=== PATIENT | male | born 1945 | race Caucasian/White ===

== ENCOUNTER 2021-07-22 09:17 | Emergency (ER) | payer MEDICARE ==
[2021-07-22 09:26] VITALS: RESP 18
[2021-07-22 09:28] VITALS: TEMP 98.1
[2021-07-22] MEDS ORDERED: SODIUM CHLORIDE 0.9% 1,000 ML IV STA (09:50)
--- NOTE | 2021-07-22 09:54 | ED ---
General Adult HPI - General Chief complaint: Dizziness Stated complaint: near syncope, dizziness Time Seen by Provider: 07/22/21 09:20 Source: patient, EMS, RN notes reviewed Mode of arrival: EMS Limitations: no limitations - History of Present Illness Initial comments: Patient is a pleasant 76-year-old male presenting to the emergency department with near-syncopal episode. Patient felt fine this morning. Patient was at [facility] and felt slightly lightheaded. Patient got up and symptoms got worse. Patient needed to sit back down. Patient never passed out. No chest pain. No palpitations. No dyspnea. Symptoms lasted around 20 minutes and now Resolved. EMS reports patient has positive orthostatics. Patient denies any confusion or weakness. Patient recently had his pacer/deferred later checked and was told it was okay. Patient also recently saw his primary care physician and was told everything looked good. - Related Data Home Medications Medication Instructions Recorded Confirmed Aspirin 81 mg PO HS 07/22/21 07/22/21 Atorvastatin [Lipitor] 20 mg PO HS 07/22/21 07/22/21 Carvedilol [Coreg] 12.5 mg PO BID 07/22/21 07/22/21 Enalapril Maleate 2.5 mg PO BID 07/22/21 07/22/21 Multivitamins, Thera [Multivitamin 1 tab PO DAILY 07/22/21 07/22/21 (formulary)] Allergies Allergy/AdvReac Type Severity Reaction Status Date / Time No Known Allergies Allergy Verified 07/22/21 11:17 Review of Systems ROS Statement: Those systems with pertinent positive or pertinent negative responses have been documented in the HPI. ROS Other: All systems not noted in ROS Statement are negative. Constitutional: Denies: fever Eyes: Denies: eye pain ENT: Denies: ear pain Respiratory: Denies: cough Cardiovascular: Denies: chest pain, palpitations Endocrine: Denies: fatigue Gastrointestinal: Denies: abdominal pain, vomiting Genitourinary: Denies: urgency Musculoskeletal: Denies: back pain Skin: Denies: rash Neurological: Denies: headache, weakness, confusion Past Medical History Additional Past Medical History / Comment(s): paracarditis. History of Any Multi-Drug Resistant Organisms: None Reported Past Surgical History: Pacemaker Additional Past Surgical History / Comment(s): medtronic pacemaker. Past Psychological History: No Psychological Hx Reported Smoking Status: Never smoker Past Alcohol Use History: Occasional Past Drug Use History: None Reported General Exam Limitations: no limitations General appearance: alert, in no apparent distress Head exam: Present: normocephalic Eye exam: Present: normal appearance, PERRL, EOMI. Absent: nystagmus ENT exam: Present: normal oropharynx Neck exam: Present: normal inspection Respiratory exam: Present: normal lung sounds bilaterally Cardiovascular Exam: Present: regular rate, normal rhythm Expanded Peripheral pulses: 2+: Radial (R), Radial (L), Posterior Tibialis (R), Posterior Tibialis (L) GI/Abdominal exam: Present: soft. Absent: tenderness Extremities exam: Present: normal inspection. Absent: pedal edema, calf tenderness Neurological exam: Present: alert, oriented X3, CN II-XII intact. Absent: motor sensory deficit Expanded Neurological exam: Present: protecting the airway Patient oriented to: Present: person, place, time Speech: Present: fluid speech Cranial nerves: EOM's Intact: Normal, Facial Sensation: Normal Sensory exam: Upper Extremity Light Touch: Normal, Lower Extremity Light Touch: Normal Motor strength exam: RUE: 5, LUE: 5, RLE: 5, LLE: 5 Eye Response: (4) open spontaneously Motor Response: (6) obeys commands Verbal Response: (5) oriented Psychiatric exam: Present: normal affect, normal mood Skin exam: Present: normal color Course Vital Signs 07/22/21 07/22/21 09:18 11:42 Temperature 98.1 F Pulse Rate 59 L Pulse Rate [ 64 Sitting Bi Consultant] Pulse Rate [ 64 Standing Bi Consultant ] Pulse Rate [ 55 L Supine Bi Consultant] Respiratory 18 Rate Blood Pressure 123/73 Blood Pressure 123/74 [Left Arm Sitting] Blood Pressure 118/64 [Left Arm Standing] Blood Pressure 117/63 [Left Arm Supine] O2 Sat by Pulse 98 Oximetry EKG Findings - EKG Comments: EKG Findings:: Sinus bradycardia rate 54. MO 198. QRS 172. QT 462. QTC 438. Left axis. Left bundle branch block. No acute ST change. Medical Decision Making - Medical Decision Making Patient reevaluated and feeling much better. Patient was able to get up. Patient is comfortable with discharge home. Orthostatics are improved. - Lab Data Result diagrams: 07/22/21 10:06 07/22/21 10:06 Lab Results 07/22/21 07/22/21 07/22/21 Range/Units 10:06 10:06 10:06 WBC 10.8 H (3.8-10.6) k/uL RBC 4.40 (4.30-5.90) m/uL Hgb 13.9 (13.0-17.5) gm/dL Hct 42.4 (39.0-53.0) % MCV 96.2 (80.0-100.0) fL MCH 31.6 (25.0-35.0) pg MCHC 32.9 (31.0-37.0) g/dL RDW 12.9 (11.5-15.5) % Plt Count 226 (150-450) k/uL MPV 7.3 Neutrophils % 70 % Lymphocytes % 18 % Monocytes % 7 % Eosinophils % 3 % Basophils % 0 % Neutrophils # 7.5 (1.3-7.7) k/uL Lymphocytes # 2.0 (1.0-4.8) k/uL Monocytes # 0.8 (0-1.0) k/uL Eosinophils # 0.3 (0-0.7) k/uL Basophils # 0.0 (0-0.2) k/uL PT 10.2 (9.0-12.0) sec INR 0.9 (<1.2) APTT 21.0 L (22.0-30.0) sec Sodium 137 (137-145) mmol/L Potassium 5.0 (3.5-5.1) mmol/L Chloride 107 (98-107) mmol/L Carbon Dioxide 25 (22-30) mmol/L Anion Gap 5 mmol/L BUN 25 H (9-20) mg/dL Creatinine 1.01 (0.66-1.25) mg/dL Est GFR (CKD-EPI)AfAm 83 (>60 ml/min/1.73 sqM) Est GFR (CKD-EPI)NonAf 72 (>60 ml/min/1.73 sqM) Glucose 104 H (74-99) mg/dL Calcium 9.2 (8.4-10.2) mg/dL Magnesium 2.2 (1.6-2.3) mg/dL Total Bilirubin 0.6 (0.2-1.3) mg/dL AST 24 (17-59) U/L ALT 19 (4-49) U/L Alkaline Phosphatase 51 (38-126) U/L Troponin I (0.000-0.034) ng/mL Total Protein 6.4 (6.3-8.2) g/dL Albumin 3.8 (3.5-5.0) g/dL 07/22/21 Range/Units 10:06 WBC (3.8-10.6) k/uL RBC (4.30-5.90) m/uL Hgb (13.0-17.5) gm/dL Hct (39.0-53.0) % MCV (80.0-100.0) fL MCH (25.0-35.0) pg MCHC (31.0-37.0) g/dL RDW (11.5-15.5) % Plt Count (150-450) k/uL MPV Neutrophils % % Lymphocytes % % Monocytes % % Eosinophils % % Basophils % % Neutrophils # (1.3-7.7) k/uL Lymphocytes # (1.0-4.8) k/uL Monocytes # (0-1.0) k/uL Eosinophils # (0-0.7) k/uL Basophils # (0-0.2) k/uL PT (9.0-12.0) sec INR (<1.2) APTT (22.0-30.0) sec Sodium (137-145) mmol/L Potassium (3.5-5.1) mmol/L Chloride (98-107) mmol/L Carbon Dioxide (22-30) mmol/L Anion Gap mmol/L BUN (9-20) mg/dL Creatinine (0.66-1.25) mg/dL Est GFR (CKD-EPI)AfAm (>60 ml/min/1.73 sqM) Est GFR (CKD-EPI)NonAf (>60 ml/min/1.73 sqM) Glucose (74-99) mg/dL Calcium (8.4-10.2) mg/dL Magnesium (1.6-2.3) mg/dL Total Bilirubin (0.2-1.3) mg/dL AST (17-59) U/L ALT (4-49) U/L Alkaline Phosphatase (38-126) U/L Troponin I <0.012 (0.000-0.034) ng/mL Total Protein (6.3-8.2) g/dL Albumin (3.5-5.0) g/dL - Radiology Data Radiology results: image reviewed (Chest x-ray shows no acute process) Disposition Clinical Impression: Near syncope Disposition: HOME SELF-CARE Condition: Stable Instructions (If sedation given, give patient instructions): Near Syncope (ED) Additional Instructions: Please follow-up with primary care physician in the next couple days for recheck. Please also follow-up to shower room attendant the next couple days for recheck. Return for weakness, passing out, feeling like urinary pass out, increased heart rate, chest pain or difficulty breathing, worsening symptoms or any other concerns. Is patient prescribed a controlled substance at d/c from ED?: No Referrals: Darwin Saba MD [Primary Care Provider] - 1-2 days Time of Disposition: 11:51
[2021-07-22 10:18] LABS: Basophils % (A) 0 %; Eosinophils # (A) 0.3 k/uL (0-0.7); Eosinophils % (A) 3 %; HCT 42.4 % (39.0-53.0); HGB 13.9 gm/dL (13.0-17.5); Lymphocytes % (A) 18 %; MCH 31.6 pg (25.0-35.0); MCHC 32.9 g/dL (31.0-37.0); MCV 96.2 fL (80.0-100.0); Mean Platelet Volume 7.3; Monocytes # (A) 0.8 k/uL (0-1.0); Monocytes % (A) 7 %; Neutrophils # (A) 7.5 k/uL (1.3-7.7); Neutrophils % (A) 70 %; Platelet Count 226 k/uL (150-450); RDW 12.9 % (11.5-15.5); WBC 10.8 k/uL (3.8-10.6)
--- NOTE | 2021-07-22 10:23 | XR ---
EXAMINATION TYPE: XR chest 2V DATE OF EXAM: 07/22/2021 COMPARISON: Chest x-ray May 13, 2013 HISTORY: Syncope and weakness. TECHNIQUE: Frontal and lateral views of the chest are obtained. FINDINGS: Underlying emphysematous changes are present on lateral view. There is no focal air space o pacity, pleural effusion, or pneumothorax seen. The cardiac silhouette size is upper limits of snow l with single lead pacemaker/defibrillator redemonstrated. The osseous structures are demineralized. Exaggerated thoracic kyphosis is seen. IMPRESSION: No acute process.
[2021-07-22 10:29] LABS: Albumin 3.8 g/dL (3.5-5.0); Calcium 9.2 mg/dL (8.4-10.2); Magnesium 2.2 mg/dL (1.6-2.3); Total Bilirubin 0.6 mg/dL (0.2-1.3); Total Protein 6.4 g/dL (6.3-8.2)
[2021-07-22 10:33] LABS: INR 0.9 (<1.2); Prothrombin Time 10.2 sec (9.0-12.0)
[2021-07-22 11:44] VITALS: BP 117/63; PULSE 55
== END 2021-07-22 12:34 | disposition home or self-care (01) ==
LOC: EC 09:17
DX: R55 Syncope and collapse (principal); R42 Dizziness and giddiness; Z79.82 Long term (current) use of aspirin
CPT/HCPCS: 36415; 71046; 80053; 83735; 84484; 85025; 85610; 85730; 93005; 96360; 99284

== ENCOUNTER → 2022-06-27 | Outpatient (CLI) | payer MEDICARE ==
--- NOTE | 2022-06-27 23:25 | CT ---
EXAMINATION TYPE: CT shoulder RT wo con DATE OF EXAM: 06/27/2022 COMPARISON: None. HISTORY: Preop planning RT total shoulder arthroplasty. Pain. Complete rotator cuff tear. Primary ost eoarthritis. Advanced glenohumeral joint osteoarthritis. CT DLP: 379.4 mGycm Automated exposure control for dose reduction was used. FINDINGS: Localizer shows single-lead pacemaker/defibrillator which prevents MRI evaluation. Acromioclavicular joint shows moderate narrowing with mild spurring. There is high riding humeral head consistent with history of chronic rotator cuff tear. There is subc hondral cystic change in the superior aspect of the humeral head. Sagittal images show mild fatty rep lacement atrophy of the supraspinatus muscle bulk. There is more moderate atrophy of the teres minor muscle with relative preservation of the infraspinatus muscle bulk. There is internal rotation of the humerus with mild to moderate medial and anterior spurring. Some anterior positioning relative osseo us glenoid of the humeral head is noted on axial images. Glenoid retroversion is seen. Calcified pleural plaque in the right lung apex is seen. There is mild underlying emphysematous lazaro e with few scattered tiny calcified right upper lung nodules. Visualized ribs are intact. IMPRESSION: As above.
== END | disposition home or self-care (01) ==
LOC: RADCTMAIN 17:23
PROVIDERS: ATTEND Orthopaedic Surgery Sports Medicine
DX: Z01.818 Encounter for other preprocedural examination (principal); M75.121 Complete rotator cuff tear or rupture of right shoulder, not specified as traumatic; J43.9 Emphysema, unspecified; M19.011 Primary osteoarthritis, right shoulder; R91.8 Other nonspecific abnormal finding of lung field; Z96.611 Presence of right artificial shoulder joint

== ENCOUNTER → 2022-08-01 | Outpatient (CLI) | payer MEDICARE ==
[2022-08-01 08:42] LABS: Prothrombin Time 10.6 sec (9.0-12.0)
[2022-08-01 11:38] LABS: HCT 41.6 % (39.6-50.0); HGB 13.6 g/dL (13.0-17.0); MCH 30.8 pg (27.0-32.0); MCHC 32.7 g/dL (32.0-37.0); MCV 94.1 fL (80.0-97.0); Mean Platelet Volume 9.8 fL (9.5-12.2); NRBC Per 100 WBC 0 /100 WBCS (0.0-0.0); Platelet Count 232 X 10*3/uL (140-440); RBC 4.42 X 10*6/uL (4.40-5.60); RDW 12.8 % (11.5-14.5); WBC 7.56 X 10*3/uL (4.50-10.00)
[2022-08-01 12:09] LABS: African American GFR (CKD) 83.8 (60.0-200.0); Albumin 4.3 g/dL (3.8-4.9); Albumin/Globulin Ratio 2.05 (1.60-3.17); Anion Gap 6.5 mmol/L (10.00-18.00); BUN/Creat Ratio 22.9 Ratio (12.00-20.00); Blood Urea Nitrogen 22.9 mg/dL (9.0-27.0); Calcium 9.8 mg/dL (8.7-10.3); Carbon Dioxide 28.5 mmol/L (20.0-27.5); Globulin 2.1 g/dL (1.6-3.3); Non-African American GFR(CKD) 72.3 (60.0-200.0); Total Bilirubin 0.5 mg/dL (0.30-1.20); Total Protein 6.4 g/dL (6.2-8.2)
[2022-08-01 15:35] LABS: Appearance,Urine Clear (Clear); Bilirubin,Urine Negative (Negative); Blood,Urine Negative (Negative); Color,Urine Yellow (Yellow); Ketones,Urine Negative (Negative); Nitrite,Urine Negative (Negative); PH, Urine 5.5 (5.0-8.0); Specific Gravity,Urine 1.024 (1.001-1.030); Urobilinogen,Urine 0.2 (0.2,1.0)
== END | disposition home or self-care (01) ==
LOC: LABPAT 07:44
PROVIDERS: ATTEND Orthopaedic Surgery Sports Medicine
DX: Z01.812 Encounter for preprocedural laboratory examination (principal)
CPT/HCPCS: 80053; 81003; 85027; 85610; 85730; 87070

== ENCOUNTER → 2023-11-27 | Outpatient (CLI) | payer MEDICARE ==
[2023-11-27 18:09] LABS: HCT 39.1 % (39.6-50.0); MCH 30.8 pg (27.0-32.0); MCHC 33.2 g/dL (32.0-37.0); MCV 92.7 FL (80.0-97.0); NRBC Per 100 WBC 0 X 10*3/uL (0.00-0.01); Platelet Count 258 X 10*3/uL (140-440); RBC 4.22 X 10*6/uL (4.40-5.60); RDW 13.2 % (11.5-14.5)
[2023-11-27 18:22] LABS: Blood Urea Nitrogen 19.4 mg/dL (9.0-27.0); Carbon Dioxide 23.5 mmol/L (21.6-31.8); Chloride 106 mmol/L (96-109); Potassium 4.3 mmol/L (3.5-5.5); Sodium 139 mmol/L (135-145)
== END | disposition home or self-care (01) ==
LOC: LABPAT 14:58
PROVIDERS: ATTEND Internal Medicine Clinical Cardiac Electrophysiology
DX: Z01.812 Encounter for preprocedural laboratory examination (principal); I50.22 Chronic systolic (congestive) heart failure; I47.20 Ventricular tachycardia, unspecified
CPT/HCPCS: 80051; 82565; 84520; 85027

== ENCOUNTER 2023-12-04 06:38 | Day surgery (SDC) | payer MEDICARE ==
[2023-12-01 16:15] VITALS: BMI 25.4
[2023-12-04] MEDS ORDERED: LIDOCAINE 1% INJ 10MG/ML (20 ML MDV) ONE (07:52)
[2023-12-04] MEDS: IV FLUID CONTINUATION 1,000 ML IV ONE (08:27)
[2023-12-04] MEDS: IOPAMIDOL-370 100ML BTL INJ ONE (08:29)
--- NOTE | 2023-12-04 08:49 | P.HPCAR ---
History of Present Illness 78-year-old male patient with nonischemic cardiomyopathy with a chronically reduced left ventricular ejection fraction of 35% Left bundle branch block pattern QRS width 189 ms CHF class II On guideline directed medical treatment Single-chamber ICD at [facility], originally implanted for primary prevention of sudden cardiac Plan In view of his congestive heart failure a very wide QRS of left bundle branch block morphology and severe LV dysfunction ejection fraction 35%, I would recommend upgrade to a biventricular ICD This was discussed with the patient's daughter and his brother. They have consented for this procedure Physical Exam Vitals: Vital Signs Temp Pulse Resp BP Pulse Ox 12/04/23 07:08 98.1 F 58 L 16 125/68 99 Intake and Output 12/03/23 12/04/23 12/04/23 22:59 06:59 14:59 Other: Weight 72.1 kg Past Medical History Past Medical History: Hyperlipidemia, Hypertension Additional Past Medical History / Comment(s): pericarditis. History of Any Multi-Drug Resistant Organisms: None Reported Past Surgical History: Pacemaker Additional Past Surgical History / Comment(s): medtronic pacemaker. RT TOTAL SHOULDER 08/2022. COLONOSCOPY Past Anesthesia/Blood Transfusion Reactions: No Reported Reaction Type of Cardiac Device: Permanent Pacemaker, AICD Device Placement Date:: 2008, 05/26/2013 Smoking Status: Never smoker - Past Family History Mother Family Medical History: Congestive Heart Failure (CHF), Diabetes Mellitus Brother(s) Family Medical History: Cancer, Diabetes Mellitus Additional Family Medical History / Comment(s): PROSTATE Father Family Medical History: Cancer, Congestive Heart Failure (CHF) Additional Family Medical History / Comment(s): LUNG Physical Examination Vital Signs Temp Pulse Resp BP Pulse Ox 12/04/23 07:08 98.1 F 58 L 16 125/68 99 Intake and Output 12/03/23 12/04/23 12/04/23 22:59 06:59 14:59 Other: Weight 72.1 kg Results Current Medications Generic Name Dose Route Start Last Admin Trade Name Freq PRN Reason Stop Dose Admin Sodium Chloride 1,000 mls @ 50 mls/hr 12/04/23 05:57 Saline 0.9% IV 01/03/24 05:58 .Q20H TSERING Cefazolin Sodium 2 gm/ Sodium 50 mls @ 100 mls/hr 12/04/23 07:00 Chloride IVPB 05/24/24 07:01 ONCE PRN Pre-Op Cefazolin Sodium 1 gm/ Sodium 250 mls @ 250 mls/hr 12/04/23 07:00 Chloride IRRIGATION 12/05/23 07:01 ONCE PRN PRE-OP Lactated Ringer's 1,000 mls @ 20 mls/hr 12/04/23 05:57 Lactated Ringers IV 01/03/24 05:58 .Q24H TSERING Vancomycin HCl 1,000 mg/ 250 mls @ 125 mls/hr 12/04/23 09:00 Sodium Chloride IVPB 12/04/23 10:59 ONCE ONE Protocol Intake and Output 12/03/23 12/04/23 12/04/23 22:59 06:59 14:59 Other: Weight 72.1 kg Patient Weight 12/05/23 06:59 Weight 72.1 kg
[2023-12-04] MEDS: LIDOCAINE 1% INJ 10MG/ML (20 ML MDV) SQ ONE ×2 (09:05→09:15)
[2023-12-04] MEDS: VANCOMYCIN 1,000 MG in SODIUM CHLORIDE 0.9% 250 ML IVPB ONE (09:05)
[2023-12-04] MEDS: ceFAZolin 1 GM in SODIUM CHLORIDE 0.9% IRRIG BTL 250 ML IRRIGATION PRN (10:05)
[2023-12-04] MEDS ORDERED: ESCITALOPRAM 20 MG TAB PO PRN (11:25)
--- NOTE | 2023-12-04 12:03 | P.EPPROC ---
- EP Procedure Note Electrophysiology Procedure Note: Patient underwent upgrade to a biventricular ICD for severe nonischemic cardiomyopathy CHF class II and newly detected left bundle branch block QRS width of 179 ms Diagnosis Cardiomyopathy, chronic, nonischemic, left ventricular ejection fraction 35% Congestive heart failure [place] [employer] class II Newly detected wide QRS, left bundle branch block morphology 179 ms On guide line directed medical treatment for greater than 3 months Procedure: Upgrade to a biventricular ICD for management of risk of sudden cardiac and congestive heart failure class II in the setting of left bundle branch block and severe cardiomyopathy ejection fraction less than 35% Result: Successful upgrade biventricular ICD with implantation of an LV lead, Atrial lead: Medtronic, pace impedance 589 ohms, P waves 3.5 mV and pacing threshold 0.5 V at point 5 ms Chronic dual coil DF 1 RV ICD lead: Medtronic, pace impedance 475 ohms, R waves 10.5 mV and pacing threshold 0.5 V at point 5 ms Left ventricular lead: Large lateral vein, screw-in Medtronic lead, pacing imp edance 646 ohms. Final configuration LV 4-2 for best thresholds. High thresholds were noted all along the vein. Distally in the vein diaphragmatic stimulation noted Proximally and in the mid section, no diaphragmatic stimulation noted Procedure details: Patient was brought to the EP lab in a fasting state. Written informed consent was obtained after detailed discussion with the family members. Left upper extremity venogram performed. 15 mL IV dye injected in the left arm. Patent axillary/subclavian vein The left pectoral area was prepped and draped as a protocol. IV antibiotics administered 1% lidocaine was used for local anesthesia. A 4 cm incision was made parallel to the deltopectoral groove, about 1.5 cm medial to it. The incision was carried down to the level of the pectoralis muscle and the subfascial pocket was accessed. Very thick capsule and a pocket in the subcutaneous location was found. The device was placed very close to the clavicle.. Hemostasis was assured. The axillary vein access was obtained. Appropriately sized into to see sheaths were placed. Please see details below Atrial lead placed in the right atrial appendage and tested for threshold, sensing, impedance, and tested with high output pacing. Phrenic nerve stimulation negative Coronary sinus/left ventricular epicardial lead placement, successful, and the lateral vein Conduction system pacing lead placement was avoided on account of septal scar Leads secured to the underlying pectoral muscle after removing sheaths . Pocket irrigated with antibiotic solution. Antibiotic pouch placed Leads connected to the biventricular ICD generator. Wound closed in 3 layers and dressed per protocol Biventricular ICD interrogated and programmed. Appropriate pacing parameters, a ntitachycardia therapies with antitachycardia pacing cardioversion defibrillations programmed. AV delay and biventricular pacing parameters programmed to achieve optimal physiologic pacing Patient tolerated the procedure well without any acute complications. See scanned device report in EMR for lead details This is a long procedure on account of the following 1. The original pocket was very close to the clavicle and the subcutaneous. A very thick capsule was encountered with the ICD lead and meshed within this capsule. The ICD lead was gradually freed from the surrounding thick capsule. Partial capsulectomy was performed. Hemostasis was assured as best as possible. A new subfascial pocket was made and was enlarged in the more cephalad and medial direction to accommodate the new leads and placed the ICD generator more cephalad, away from the clavicle Venous access was very difficult on account of the previous orientation of the original access. 1 venous access was utilized at the level of the second rib. The second venous access was finally obtained at the level of the first rib Stenosis was encountered in the axillary subclavian junction and venoplasty was performed with gradual dilation using dilators starting from 6 Vincentian to 9.5 Vincentian. Successful venoplasty was performed over an advantage wire. Thereafter an atrial lead was placed in the right atrial appendage, Medtronic with excellent thresholds sensing and stable position An LV lead was placed in the lateral vein. The coronary sinus venogram revealed a very large lateral vein which was utilized. Diaphragmatic stimulation was noted very distally but not in the proximal and mid section of the lateral LV vein. High thresholds were encountered along this vein consistent with his n onischemic cardiomyopathy and a scar that extended along the anterior wall anterior septum inferior wall and lateral wall on echo Left bundle pacing was avoided on account of anteroseptal and inferior septal basal scar
[2023-12-04] MEDS: ACETAMINOPHEN TAB 325 MG TAB PO PRN (15:40)
--- NOTE | 2023-12-04 16:22 | P.EPPROC ---
- EP Procedure Note Electrophysiology Procedure Note: PROCEDURE A. fib ablation with PVI and left atrial septal ablation DIAGNOSIS Paroxysmal atrial fibrillation, symptomatic, refractory to therapy, associated cardiomyopathy RESULT No left atrial appendage mass seen on intracardiac echo, very large pulmonary veins Thick PV modesto-pedicles Successful A. fib ablation/pulmonary vein isolation of all veins using cryo- ablation Complete entrance block in all 4 veins confirmed Transient phrenic nerve paresis with rapid, complete recovery Left atrial septal ablation Esophageal deflection YES PROCEDURE DETAILS Written informed consent prior to procedure. Patient brought to the EP lab. General anesthesia given. Heparin administered. A city maintained above 300 seconds Both groins prepped and draped per protocol and venous sheaths placed. Esophagus intubated, circa catheter for temperature monitoring an endoscope for possible esophageal deflection. Phrenic nerve monitoring performed. Esophageal temperature monitoring performed. Esophageal deflection performed if circa catheter overlapping with the balloon or circa temperature less than 27.5C Intracardiac echocardiography performed. Pericardium evaluated. Left atrial appendage evaluated. Left atrium evaluated along with pulmonary veins Transseptal catheterization performed under fluoroscopic guidance and intracardiac echo guidance Cryoablation sheath exchanged, balloon catheter along with achieve catheter placed in the left atrium. Pulmonary veins isolated in the following sequence: Left superior pulmonary vein followed by left inferior pulmonary vein, followed by right inferior pulmonary vein and lastly right superior pulmonary vein. Phrenic nerve stimulation along with capture thresholds within the SVC and right superior pulmonary vein to identify the phrenic nerve proximity to the cryo- balloon. Pulmonary veins isolated and confirmed with entrance and exit block. Phrenic nerve integrity confirmed at the end of the procedure Ablation of the left atrial septum performed with cannulation of the superior branch of the right inferior to achieve ablation of the posterior septum of the left atrium. Ablation of electrograms confirmed Electrical cardioversion performed for persistence of atrial fibrillation despite successful ablation. Diagnostic catheters for the high right atrium, His bundle, coronary sinus placed. LA and RA pressures recorded RA pressure: 13/2/10 LA pressure: 14/0/5 Baseline measurements in sinus rhythm ND 106 ms, QRS 106 ms, QT 410 ms Sinus cycle length 704 ms Diagnostic EP study Sinus node recovery x 1 883, 896 and 765 ms. AV node Wenckebach block 300 ms High-dose Isopril used. No atrial fibrillation induced Both stimulation from the high right atrium performed. No atrial fibrillation induced Venous sheaths were removed and hemostasis assured with a closure device. Patient extubated and transferred to recovery Increase procedural time Large diameter pulmonary veins noted. Despite excellent occlusion and excellent cryoballoon temperatures, isolation was difficult and delayed isolation's were noted Therefore the pulmonary vein tributaries were subselectively cannulated and pulmonary vein isolation was performed at an antral level with shorter 2-minute cryo lesions. Good temperatures were achieved. Antral level ablation performed with multiple ablations, anteriorly, posteriorly, superiorly and inferiorly All his veins were of large diameter Multiple attempts needed for successful cryoablation isolation of the pulmonary vein At the end of the procedure all pulmonary veins were completely isolated at the antral level PROCEDURES PERFORMED Diagnostic EP study CS pacing and recording Left and right transseptal catheterization Catheter the mapping of the tachycardia Intracardiac echocardiography Pulmonary vein isolation with transseptal and comprehensive EPS, [id number] Extended procedure duration Drug infusion, +[id number] Linear ablation, left atrium, +[id number]
[2023-12-04] MEDS: ACETAMINOPHEN IV (For NPO) 1,000 MG in EMPTY BAG 1 BAG IVPB ONE (16:41)
[2023-12-04] MEDS: DAPAGLIFLOZIN PROPANEDIOL 10 MG TABLET PO SCH (16:49)
[2023-12-04] MEDS: carvediloL 12.5 MG TAB PO SCH (16:49)
[2023-12-04] MEDS: SPIRONOLACTONE 25 MG TAB PO SCH (16:49)
[2023-12-04] MEDS: SODIUM CHLORIDE 0.9% 1,000 ML IV SCH (17:26)
[2023-12-04] MEDS: LACTATED RINGERS 1,000 ML IV SCH (17:26)
[2023-12-04] MEDS: lisinopriL 5 MG TAB PO SCH (21:07)
[2023-12-04] MEDS: ATORVASTATIN 20 MG TAB PO SCH (21:07)
[2023-12-04 23:12] VITALS: RESP 15
[2023-12-05 09:05] VITALS: BP 94/57; PULSE 62; TEMP 98.2
--- NOTE | 2023-12-05 18:52 | XR ---
EXAMINATION TYPE: XR chest 2V DATE OF EXAM: 12/05/2023 COMPARISON: 07/22/2021 INDICATION: Lead placement check TECHNIQUE: Frontal and lateral views of the chest are obtained. FINDINGS: The heart size is normal. The pulmonary vasculature is normal. The lungs are clear. Pacemaker is in place over the left chest. 3 pacemaker leads are present with typical orientation. IMPRESSION: 1. No acute pulmonary process. 2. No pneumothorax pacemaker change. Orientation appears unremarkable.
== END 2023-12-05 12:17 | disposition home or self-care (01) ==
LOC: CATHEP 06:38 → 6NMEDSUR 11:20 → CATHEP 12-05 12:17
PROVIDERS: ATTEND Internal Medicine Clinical Cardiac Electrophysiology
DX: I48.0 Paroxysmal atrial fibrillation (principal); I42.8 Other cardiomyopathies; I11.0 Hypertensive heart disease with heart failure; I50.9 Heart failure, unspecified; I44.7 Left bundle-branch block, unspecified; E78.5 Hyperlipidemia, unspecified; Z79.899 Other long term (current) drug therapy
CPT/HCPCS: 33225; 33249; 33241; 84443; 71046; C1769 ×4; C1882; C1892; C1730; C1887; C1898; C1900; J3370; J0690; J2001; Q9967

== ENCOUNTER 2023-12-19 04:37 | Emergency (ER) | payer MEDICARE ==
--- NOTE | 2023-12-19 05:05 | ED ---
General Adult HPI - General Chief complaint: Dizziness Stated complaint: Light Headed Time Seen by Provider: 12/19/23 04:42 Source: patient Mode of arrival: EMS - History of Present Illness Initial comments: Umair is a pleasant 78-year-old gentleman who presents ER today via ambulance for evaluation of dizziness. Patient reports he woke from sleep feeling like the room was spinning around him he was very sweaty he got up to walk to the bathroom but was very off balance he ended up going down to his hands and knees due to his fear that he would fall. Patient reports once he was resting in bed the dizziness resolved but he continued to feel somewhat lightheaded he contacte d his brother and EMS was called to transport him to the hospital. Patient states he feels like when he moves the room spins around him and he gets very lightheaded and off balance. No chest pain palpitations or shortness of breath. No headache or vision changes. No previous episodes similar to this. Patient's brother at bedside does note that his mom suffered from chronic vertigo. - Related Data Home Medications Medication Instructions Recorded Confirmed Atorvastatin [Lipitor] 20 mg PO HS 07/22/21 12/04/23 Enalapril Maleate 2.5 mg PO BID 07/22/21 12/04/23 Multivitamins, Thera [Multivitamin 1 tab PO DAILY 07/22/21 12/04/23 (formulary)] carvediloL [Coreg] 12.5 mg PO BID 07/22/21 12/04/23 Escitalopram [Lexapro] 20 mg PO DAILY PRN 08/29/22 12/01/23 Doxycycline Hyclate 100 mg PO DAILY 12/01/23 12/01/23 Previous Rx's Medication Instructions Recorded Ondansetron [Zofran] 4 mg PO Q8HR PRN #21 tab 08/29/22 Dapagliflozin Propanediol [Farxiga] 10 mg PO DAILY #90 tablet 12/04/23 Spironolactone [Aldactone] 25 mg PO DAILY #90 tablet 12/04/23 Meclizine HCl [Antivert] 25 mg PO Q8HR #20 tab 12/19/23 Allergies Allergy/AdvReac Type Severity Reaction Status Date / Time No Known Allergies Allergy Verified 12/19/23 04:53 Review of Systems ROS Statement: Those systems with pertinent positive or pertinent negative responses have been documented in the HPI. ROS Other: All systems not noted in ROS Statement are negative. Past Medical History Past Medical History: Hyperlipidemia, Hypertension Additional Past Medical History / Comment(s): paracarditis. History of Any Multi-Drug Resistant Organisms: None Reported Past Surgical History: Pacemaker Additional Past Surgical History / Comment(s): medtronic pacemaker. Past Anesthesia/Blood Transfusion Reactions: No Reported Reaction Type of Cardiac Device: Permanent Pacemaker, AICD Device Placement Date:: unk Past Psychological History: No Psychological Hx Reported Smoking Status: Never smoker Past Alcohol Use History: Occasional Past Drug Use History: None Reported - Past Family History Mother Family Medical History: Congestive Heart Failure (CHF), Diabetes Mellitus Brother(s) Family Medical History: Cancer, Diabetes Mellitus Father Family Medical History: Cancer, Congestive Heart Failure (CHF) General Exam - General Exam Comments Initial Comments: Physical Exam GENERAL: Patient is well-developed and well-nourished. Patient is nontoxic and well- hydrated and is in no distress. HENT: Normocephalic, Atraumatic. TMs normal bilaterally EYES: PERRL, EOMI PULMONARY: Unlabored respirations. No audible rales rhonchi or wheezing was noted. CARDIOVASCULAR: There is a regular rate and rhythm without any murmurs gallops or rubs. Well-healing surgical incision over the left chest where pacemaker was recently replaced ABDOMEN: Soft and nontender with normal bowel sounds. SKIN: Skin is clear with no lesions or rashes and otherwise unremarkable. : Deferred NEUROLOGIC: Patient is alert and oriented x3. Moving all extremities spontaneously Patient has reproducible horizontal nystagmus with head turning to the left MUSCULOSKELETAL: Normal extremities with adequate strength and full range of motion. No lower extremity swelling or edema. No calf tenderness. PSYCHIATRIC: Normal psychiatric evaluation. Course Vital Signs 12/19/23 12/19/23 04:40 06:20 Temperature 98.0 F Pulse Rate 76 61 Respiratory 20 18 Rate Blood Pressure 127/77 105/71 O2 Sat by Pulse 99 98 Oximetry EKG Findings - EKG Comments: EKG Findings:: EKG interpreted by me, EKG obtained due to complaint of dizziness, EKG obtained at 4:42 AM, rate is 69 rhythm is ventricular paced no obvious ST elevations or depressions no evidence of ischemia or infarction Medical Decision Making - Medical Decision Making Was pt. sent in by a medical professional or institution (JAMES Mckeon, [employer], urgent care, hospital, or shelter...) When possible be specific @ -No Did you speak to anyone other than the patient for history (EMS, parent, family, police, friend...)? What history was obtained from this source @ -No Did you review nursing and triage notes (agree or disagree)? Why? @ -I reviewed and agree with nursing and triage notes Were old charts reviewed (outside hosp., previous admission, EMS record, old EKG, old radiological studies, urgent care reports/EKG's, shelter records)? Report findings @ -No old charts were reviewed Differential Diagnosis (chest pain, altered mental status, abdominal pain women, abdominal pain men, vaginal bleeding, weakness, fever, dyspnea, syncope, headache, dizziness, GI bleed, back pain, seizure, CVA, palpatations, mental health)? @ -Not applicable EKG interpreted by me (3pts min.). @ -As above X-rays interpreted by me (1pt min.). @ -None done CT interpreted by me (1pt min.). @ -None done U/S interpreted by me (1pt. min.). @ -None done What testing was considered but not performed or refused? (CT, X-rays, U/S, labs)? Why? @ -None What meds were considered but not given or refused? Why? @ -None Did you discuss the management of the patient with other professionals (professionals i.e. JAMES Mckeon, [employer]NACE [employer], lab, RT, psych nurse, social and political studies professor, clinical trials nurse, teacher, privacy officer, case managers)? Give summary @ -No Was smoking cessation discussed for >3mins.? @ -No Was critical care preformed (if so, how long)? @ -No Were there social determinants of health that impacted care today? How? (Homelessness, low income, unemployed, alcoholism, drug addiction, transportation, low edu. Level, literacy, decrease access to med. care, assisted, rehab)? @ -No Was there de-escalation of care discussed even if they declined (Discuss DNR or withdrawal of care, Hospice)? DNR status @ -No What co-morbidities impacted this encounter? (DM, HTN, Smoking, COPD, CAD, Cancer, CVA, ARF, Chemo, Hep., AIDS, mental health diagnosis, sleep apnea, morbid obesity)? @ -CHF Was patient admitted / discharged? Hospital course, mention meds given and route, prescriptions, significant lab abnormalities, going to OR and other pertinent info. @ -Discharged Patient was seen and evaluated history and physical exam are consistent with benign peripheral vertigo which is exacerbated by turning the head to the left. Patient was concerned because of his recent pacemaker EKG was unremarkable labs were unremarkable troponin is not elevated there is no ectopy or abnormality noted on telemetry monitoring. Patient was treated with Antivert was able to ambulate around the department without assistance or difficulty. Patient be discharged home to with a prescription for Antivert and plan for outpatient follow-up. Undiagnosed new problem with uncertain prognosis? @ -No Drug Therapy requiring intensive monitoring for toxicity (Heparin, Nitro, Insulin, Cardizem)? @ -No Were any procedures done? @ -No Diagnosis/symptom? @ -BPPV Acute, or Chronic, or Acute on Chronic? @ -Acute Uncomplicated (without systemic symptoms) or Complicated (systemic symptoms)? @ -Default Side effects of treatment? @ -No Exacerbation, Progression, or Severe Exacerbation? @ -No Poses a threat to life or bodily function? How? (Chest pain, [place], [place], pneumonia, PE, COPD, DKA, ARF, appy, cholecystitis, CVA, Diverticulitis, Homicidal, Suicidal, threat to staff... and all critical care pts) @ -No - Lab Data Result diagrams: 12/19/23 05:20 12/19/23 05:20 Lab Results 12/19/23 12/19/23 12/19/23 Range/Units 05:20 05:20 05:20 WBC 7.2 (3.8-10.6) k/uL RBC 3.26 L (4.30-5.90) m/uL Hgb 10.1 L (13.0-17.5) gm/dL Hct 30.6 L (39.0-53.0) % MCV 94.0 (80.0-100.0) fL MCH 31.0 (25.0-35.0) pg MCHC 33.0 (31.0-37.0) g/dL RDW 12.7 (11.5-15.5) % Plt Count 320 (150-450) k/uL MPV 7.0 Neutrophils % 56 % Lymphocytes % 31 % Monocytes % 7 % Eosinophils % 3 % Basophils % 1 % Neutrophils # 4.0 (1.3-7.7) k/uL Lymphocytes # 2.2 (1.0-4.8) k/uL Monocytes # 0.5 (0-1.0) k/uL Eosinophils # 0.2 (0-0.7) k/uL Basophils # 0.0 (0-0.2) k/uL PT 11.3 (10.0-12.5) sec INR 1.0 (<1.2) APTT 18.1 L (22.0-30.0) sec Sodium 135 L (137-145) mmol/L Potassium 4.5 (3.5-5.1) mmol/L Chloride 108 H (98-107) mmol/L Carbon Dioxide 20 L (22-30) mmol/L Anion Gap 7 mmol/L BUN 20 (9-20) mg/dL Creatinine 0.85 (0.66-1.25) mg/dL Est GFR (CKD-EPI)AfAm >90 (>60 ml/min/1.73 sqM) Est GFR (CKD-EPI)NonAf 84 (>60 ml/min/1.73 sqM) Glucose 98 (74-99) mg/dL Calcium 8.5 (8.4-10.2) mg/dL Magnesium 2.3 (1.6-2.3) mg/dL Total Bilirubin 0.6 (0.2-1.3) mg/dL AST 27 (17-59) U/L ALT 22 (4-49) U/L Alkaline Phosphatase 69 (38-126) U/L Troponin I (0.000-0.034) ng/mL Total Protein 6.1 L (6.3-8.2) g/dL Albumin 3.5 (3.5-5.0) g/dL 12/19/23 Range/Units 05:20 WBC (3.8-10.6) k/uL RBC (4.30-5.90) m/uL Hgb (13.0-17.5) gm/dL Hct (39.0-53.0) % MCV (80.0-100.0) fL MCH (25.0-35.0) pg MCHC (31.0-37.0) g/dL RDW (11.5-15.5) % Plt Count (150-450) k/uL MPV Neutrophils % % Lymphocytes % % Monocytes % % Eosinophils % % Basophils % % Neutrophils # (1.3-7.7) k/uL Lymphocytes # (1.0-4.8) k/uL Monocytes # (0-1.0) k/uL Eosinophils # (0-0.7) k/uL Basophils # (0-0.2) k/uL PT (10.0-12.5) sec INR (<1.2) APTT (22.0-30.0) sec Sodium (137-145) mmol/L Potassium (3.5-5.1) mmol/L Chloride (98-107) mmol/L Carbon Dioxide (22-30) mmol/L Anion Gap mmol/L BUN (9-20) mg/dL Creatinine (0.66-1.25) mg/dL Est GFR (CKD-EPI)AfAm (>60 ml/min/1.73 sqM) Est GFR (CKD-EPI)NonAf (>60 ml/min/1.73 sqM) Glucose (74-99) mg/dL Calcium (8.4-10.2) mg/dL Magnesium (1.6-2.3) mg/dL Total Bilirubin (0.2-1.3) mg/dL AST (17-59) U/L ALT (4-49) U/L Alkaline Phosphatase (38-126) U/L Troponin I <0.012 (0.000-0.034) ng/mL Total Protein (6.3-8.2) g/dL Albumin (3.5-5.0) g/dL Disposition Clinical Impression: Vertigo Disposition: HOME SELF-CARE Condition: Stable Instructions (If sedation given, give patient instructions): Dizziness (ED) Prescriptions: Meclizine HCl [Antivert] 25 mg PO Q8HR #20 tab Is patient prescribed a controlled substance at d/c from ED?: No Referrals: None,Stated [Primary Care Provider] - 1-2 days
[2023-12-19 05:28] LABS: Basophils % (A) 1 %; Eosinophils # (A) 0.2 k/uL (0-0.7); Eosinophils % (A) 3 %; HCT 30.6 % (39.0-53.0); HGB 10.1 gm/dL (13.0-17.5); Lymphocytes # (A) 2.2 k/uL (1.0-4.8); Lymphocytes % (A) 31 %; Monocytes # (A) 0.5 k/uL (0-1.0); Monocytes % (A) 7 %; Neutrophils % (A) 56 %; Platelet Count 320 k/uL (150-450); RBC 3.26 m/uL (4.30-5.90); RDW 12.7 % (11.5-15.5); WBC 7.2 k/uL (3.8-10.6)
[2023-12-19 05:38] LABS: ALT 22 U/L (4-49); AST 27 U/L (17-59); African American GFR (CKD) >90 (>60 ml/min/1.73 sqM); Albumin 3.5 g/dL (3.5-5.0); Alkaline Phosphatase 69 U/L (38-126); Anion Gap 7 mmol/L; Blood Urea Nitrogen 20 mg/dL (9-20); Calcium 8.5 mg/dL (8.4-10.2); Carbon Dioxide 20 mmol/L (22-30); Chloride 108 mmol/L (98-107); Glucose 98 mg/dL (74-99); Magnesium 2.3 mg/dL (1.6-2.3); Non-African American GFR(CKD) 84 (>60 ml/min/1.73 sqM); Potassium 4.5 mmol/L (3.5-5.1); Sodium 135 mmol/L (137-145); Total Bilirubin 0.6 mg/dL (0.2-1.3); Total Protein 6.1 g/dL (6.3-8.2)
[2023-12-19 05:56] LABS: Prothrombin Time 11.3 sec (10.0-12.5)
--- NOTE | 2023-12-19 05:58 | XR ---
EXAMINATION TYPE: XR chest 2V DATE OF EXAM: 12/19/2023 COMPARISON: Prior chest x-ray December 05, 2023 HISTORY: Syncope TECHNIQUE: Frontal and lateral views of the chest are obtained. FINDINGS: Underlying emphysematous changes are felt present. There is no focal air space opacity, pl eural effusion, or pneumothorax seen. The cardiac silhouette size is stable and upper limits of norm al with multi lead pacemaker/defibrillator identified. Surgical change to the right shoulder is parti ally imaged. IMPRESSION: No acute process. No significant change from prior.
[2023-12-19 06:12] LABS: Partial Thromboplastin Time 18.1 sec (22.0-30.0)
[2023-12-19] MEDS: SODIUM CHLORIDE 0.9% 1,000 ML IV STA (06:19)
[2023-12-19 06:21] VITALS: PULSE 61
[2023-12-19] MEDS: MECLIZINE 12.5 MG TAB PO STA (06:53)
[2023-12-19 08:12] VITALS: BP 102/68; RESP 14; TEMP 97.7
== END 2023-12-19 08:40 | disposition home or self-care (01) ==
LOC: EC 04:37
DX: R42 Dizziness and giddiness (principal)
CPT/HCPCS: 36415; 71046; 80053; 83735; 84484; 85025; 85610; 85730; 93005; 96360; 99285

== ENCOUNTER → 2024-01-26 | Outpatient (CLI) | payer MEDICARE ==
[2024-01-26 15:45] LABS: Blood Urea Nitrogen 15.8 mg/dL (9.0-27.0); Carbon Dioxide 23.4 mmol/L (21.6-31.8); Chloride 102 mmol/L (96-109); Potassium 4.9 mmol/L (3.5-5.5); Sodium 136 mmol/L (135-145)
[2024-01-26 17:04] LABS: HCT 37.1 % (39.6-50.0); HGB 12.1 g/dL (13.0-17.0); MCH 30.4 pg (27.0-32.0); MCHC 32.6 g/dL (32.0-37.0); MCV 93.2 FL (80.0-97.0); Mean Platelet Volume 9.8 FL (9.5-12.2); NRBC Per 100 WBC 0 X 10*3/uL (0.00-0.01); Platelet Count 323 X 10*3/uL (140-440); RBC 3.98 X 10*6/uL (4.40-5.60); RDW 14.1 % (11.5-14.5); WBC 9.77 X 10*3/uL (4.50-10.00)
== END | disposition home or self-care (01) ==
LOC: LABPAT 09:20
PROVIDERS: ATTEND Internal Medicine Clinical Cardiac Electrophysiology
DX: Z01.812 Encounter for preprocedural laboratory examination (principal); I50.22 Chronic systolic (congestive) heart failure; Z95.810 Presence of automatic (implantable) cardiac defibrillator
CPT/HCPCS: 36415; 80051; 82565; 84520; 85027

== ENCOUNTER 2024-02-03 10:30 | Day surgery (SDC) | payer MEDICARE ==
--- NOTE | 2023-12-18 17:42 | P.DS ---
Providers Attending physician: John Paul Jones Hospital Course: Patient is doing well following implantation of BiV ICD. Minimal discomfort in the left pectoral area minimal soakage Heart sounds S1-S2 normal Breath sounds are clear Blood pressures 140/62 mmHg pulse rate in the 60s afebrile Impression Nonischemic cardiomyopathy ejection fraction 35% with class II CHF Left bundle branch block morphology newly detected On guideline directed medical treatment Upgrade to a BiV ICD and the left ventricular lead placed in a large lateral vein High thresholds with noted along the vein and distally the vein demonstrated diaphragmatic stimulation Best threshold was LV 4-2 electrodes Plan continue cardiac medications Follow-up in the office in 1 week Plan - Discharge Summary New Discharge Prescriptions: No Action Multivitamins, Thera [Multivitamin (formulary)] 1 tab PO DAILY Enalapril Maleate 2.5 mg PO BID carvediloL [Coreg] 12.5 mg PO BID Atorvastatin [Lipitor] 20 mg PO HS Doxycycline Hyclate 100 mg PO DAILY Dapagliflozin Propanediol [Farxiga] 10 mg PO DAILY #90 tablet Ondansetron [Zofran] 4 mg PO Q8HR PRN #21 tab PRN Reason: Nausea Escitalopram [Lexapro] 20 mg PO DAILY PRN PRN Reason: Anxiety Spironolactone [Aldactone] 25 mg PO DAILY #90 tablet Discharge Medication List Atorvastatin [Lipitor] 20 mg PO HS 07/22/21 [History] Enalapril Maleate 2.5 mg PO BID 07/22/21 [History] Multivitamins, Thera [Multivitamin (formulary)] 1 tab PO DAILY 07/22/21 [History] carvediloL [Coreg] 12.5 mg PO BID 07/22/21 [History] Escitalopram [Lexapro] 20 mg PO DAILY PRN 08/29/22 [History] Ondansetron [Zofran] 4 mg PO Q8HR PRN #21 tab 08/29/22 [Rx] Doxycycline Hyclate 100 mg PO DAILY 12/01/23 [History] Dapagliflozin Propanediol [Farxiga] 10 mg PO DAILY #90 tablet 12/04/23 [Rx] Spironolactone [Aldactone] 25 mg PO DAILY #90 tablet 12/04/23 [Rx]
[2024-01-30 12:36] VITALS: BMI 25.2
[~2024-02-03 10:30] MED LIST: LACTATED RINGERS 1,000 ML IV SCH
[2024-02-03 10:48] VITALS: RESP 18; TEMP 98.4
[2024-02-03] MEDS: IV FLUID CONTINUATION 1,000 ML IV ONE (10:48)
[2024-02-03] MEDS: SODIUM CHLORIDE 0.9% 1,000 ML IV SCH (10:48)
[2024-02-03 10:49] LABS: Glucose,Whole Blood 124 mg/dL (70-110)
[2024-02-03] MEDS ORDERED: PROPOFOL 10 MG/ML 20 ML VIAL IV ONE (11:50)
[2024-02-03] MEDS ORDERED: LIDOCAINE 1% INJ 10MG/ML (20 ML MDV) ONE (11:50)
--- NOTE | 2024-02-03 12:53 | P.EPPROC ---
- EP Procedure Note Electrophysiology Procedure Note: Diagnosis Congestive heart failure Status post biventricular ICD, Medtronic. Recent upgrade Elective defibrillation level testing Result Defibrillation threshold between 10-20 J Type II conversion with a 10 J shock Successful defibrillation with a 20 J shock Appropriate charge times occasional dropout, appropriate impedance for shocking Details Patient was brought to the EP lab in a fasting state. Written informed consent was obtained prior to the procedure. Under conscious sedation the device was interrogated VF was induced. It was successfully detected with 2-3 dropouts. A 10 J shock failed but there was a type II conversion Charge time 1.78 seconds, shock impedance 36 ohms After 3 minutes VF was once again induced and successfully internally defibrillated with 1 dropout, a 20 J shock was successful in defibrillating the patient 37 ohms, charge time 3.78 seconds Device was then reprogrammed. First cardioversion 20 J, first defibrillation 40 J Appropriate antitachycardia pacing cardioversion and defibrillation programmed LV threshold 2.5 V at 0.4 ms, pace impedance 323 ohms RV threshold 0.5 V at 0.4 ms, pace impedance 456 ohms, R waves 9.3 mV Atrial pacing threshold 0.7 V at 0.4 ms, pacing impedance 400 ohms, P waves 1.8 mV Device was programmed DDDR 60-120 ppm not adaptive simultaneous MANAGER ANALYSIS, transferred to paced AV delay 130 ms
[2024-02-03 14:35] VITALS: BP 95/60; PULSE 70
== END 2024-02-03 13:20 | disposition home or self-care (01) ==
LOC: CATHEP 10:30
PROVIDERS: ATTEND Internal Medicine Clinical Cardiac Electrophysiology
DX: Z45.02 Encounter for adjustment and management of automatic implantable cardiac defibrillator (principal); I11.0 Hypertensive heart disease with heart failure; I50.22 Chronic systolic (congestive) heart failure; I42.8 Other cardiomyopathies; I44.7 Left bundle-branch block, unspecified; E78.2 Mixed hyperlipidemia; Z95.810 Presence of automatic (implantable) cardiac defibrillator; Z79.82 Long term (current) use of aspirin; Z79.84 Long term (current) use of oral hypoglycemic drugs; Z79.899 Other long term (current) drug therapy
CPT/HCPCS: 93642; 92960; J2001; J2704

== ENCOUNTER → 2025-02-03 | Outpatient (CLI) | payer MEDICARE ==
[2025-02-03 10:33] LABS: NT-Pro-B-Type Natriuretic Pept 128 pg/mL (0-450)
[2025-02-03 10:40] LABS: BUN/Creat Ratio 17.45 Ratio (12.00-20.00); Blood Urea Nitrogen 19.2 mg/dL (9.0-27.0); Glucose 104 mg/dL (70-110)
[2025-02-03 10:41] LABS: Anion Gap 8.10 mmol/L (4.00-12.00); Calcium 9.0 mg/dL (8.7-10.3); Carbon Dioxide 22.9 mmol/L (21.6-31.8); Chloride 105 mmol/L (96-109); Potassium 5.4 mmol/L (3.5-5.5); Sodium 136 mmol/L (135-145)
== END | disposition home or self-care (01) ==
LOC: LABWHC1 07:03
PROVIDERS: ATTEND Internal Medicine Cardiovascular Disease
DX: I50.22 Chronic systolic (congestive) heart failure (principal)
CPT/HCPCS: 36415; 80048; 83880